=== PATIENT | male | born 1960 | race Caucasian/White ===

== ENCOUNTER 2017-07-13 18:24 | Emergency (ER) | payer BC ==
[~2017-07-13] VITALS: Ht 193 cm; Wt 111.1 kg
[2017-07-13 21:20] VITALS: BP 154/90
== END 2017-07-13 21:20 | disposition home or self-care (01) ==
LOC: ED 18:24
DX: S16.1XXA Strain of muscle, fascia and tendon at neck level, initial encounter (principal); S20.211A Contusion of right front wall of thorax, initial encounter; V49.9XXA Car occupant (driver) (passenger) injured in unspecified traffic accident, initial encounter; X58.XXXA Exposure to other specified factors, initial encounter; Y93.89 Activity, other specified; Y99.8 Other external cause status; Y92.89 Other specified places as the place of occurrence of the external cause
CPT/HCPCS: J1885